=== PATIENT | female | born 1985 | race Caucasian/White ===

== ENCOUNTER 2023-03-08 05:37 | Emergency (ER) | payer OTHER, SELFPAY ==
[2023-03-08 05:45] VITALS: BP 108/68; PULSE 78; RESP 24; TEMP 37; O2SAT 97; BMI 21.9
--- NOTE | 2023-03-08 05:52 | CRLHL7_ITS ---
For Patients: As a result of the Century Cures Act, medical imaging exams and procedure reports are released immediately into your electronic medical record. You may view this report before your referring provider. If you have questions, please contact your health care provider. INDICATION: Left flank pain. TECHNIQUE: CT abdomen and pelvis without contrast. COMPARISON: None. FINDINGS: Lower chest: Unremarkable. Liver: Normal in size and attenuation. No suspicious masses. Gallbladder and bile ducts: No stones or inflammation. No biliary dilatation. Pancreas: Unremarkable. No mass or inflammation. Spleen: Normal in size. No masses. Adrenal glands: Normal in size. No nodules. Kidneys: A small 2 mm stone has passed into the bladder from the left ureter with minimal residual hydronephrosis. A 2nd tiny stone is in the right kidney. GI tract: Unremarkable. Normal in caliber. No sign of mass or inflammation. Normal appendix. Vasculature: Abdominal aorta is normal in caliber. Lymph nodes: No lymphadenopathy. Peritoneum/Abdominal Wall: Unremarkable. No sign of mass or infiltration. No free air or significant free fluid. Pelvis: Unremarkable. No pelvic masses. Bones: Unremarkable for age. IMPRESSION: Small 2 mm stone has passed into the bladder from the left ureter with minimal residual hydronephrosis. Please note that all CT scans at this facility use dose modulation, iterative reconstruction, and/or weight-based dosing when appropriate to reduce radiation dose to as low as reasonably achievable. Dictated by Yong Scott MD @ 03/08/2023 6:50:38 AM (Electronically Signed)
--- NOTE | 2023-03-08 05:54 | ED.GENADULT ---
HPI - General Adult General Chief complaint: Flank Pain Stated complaint: back/stomach pain Time Seen by Provider: 03/08/23 05:44 Source: patient Mode of arrival: ambulatory Limitations: no limitations History of Present Illness HPI narrative: 37-year-old female coming in today after waking up in the middle of the night in acute pain, 1 hour ago. Pain is located on the left flank radiates into the groin area. Nothing makes it better or worse. She feels nauseated but has not vomited. Urinated recently, no blood in her urine. Bowel movements have been normal. No fevers or chills. She has never had a pain like this before. She uses a budesonide formoterol inhaler and she gets regular injections for weight loss. Related Data Home Medications Medication Instructions Recorded Confirmed budesonide-formoterol HFA 160 2 puff inhalation BID 03/08/23 03/08/23 mcg-4.5 mcg/actuation aerosol inhaler clobetasol 0.05 % scalp solution topical 03/08/23 Allergies Allergy/AdvReac Type Severity Reaction Status Date / Time No Known Drug Allergies Allergy Verified 03/08/23 05:45 Review of Systems Status of ROS: Reports: 10 or more systems reviewed and unremarkable except as noted in History and below Exam Narrative: Exam Narrative: Thin, well-developed patient who appears very uncomfortable, is tearful. Alert and oriented. Answers questions appropriately. Thoughts are goal oriented and rational. No tangential or magical thinking noted. Patient speaks in full sentences without needing to catch her breath. HEENT: Normocephalic atraumatic. Pupils are equally round reactive to light. Extraocular muscles are intact. Conjunctivae are moist without any icterus noted. Moist mucous membranes. Cardiovascular: Heart is regular rate and rhythm S1 and S2 are present without any murmurs. Lungs: Clear to auscultation bilaterally no wheezes rhonchi or rales are appreciated. Patient takes deep breaths without any discomfort. Abdomen: Soft and nontender nondistended with normal bowel sounds. No guarding or rebound. No masses or organomegaly appreciated. She does have left-sided flank pain on palpation and CVA tenderness. Extremities: Bilateral lower extremities are without edema. Skin: Well perfused without any obvious rashes. Const: Vital Signs, click to edit/add: Vital Signs - 24 hr 03/08/23 05:45 Temperature 98.6 F Pulse Rate [Pulse Oximeter] 78 Respiratory Rate 24 Blood Pressure [Ri ght Upper Arm] 108/68 Pulse Oximetry 97 Oxygen Delivery Me thod Room Air Course Course Hospital Course: IV was established and patient received fluids, Zofran and Toradol. Labs were drawn in the CT scan was ordered. Patient continued to have pain so she was given IV Dilaudid which provided her with about 35 minutes of relief, this was followed by oral hydrocodone. Lab work was unremarkable, lactate was 2.0. Normal CRP and a normal white cell count. Abdominal CT scan shows a 2 mm stone that passed into the bladder and 1 stone still in the kidney. She did not leave a urine sample. Vital Signs Vital signs: Initial Vital Signs Temperature 98.6 F 03/08/23 05:45 Temperature Source Temporal Artery Scan 03/08/23 05:45 Pulse Rate 78 03/08/23 05:45 Pulse Rhythm Regular 03/08/23 05:45 Pulse Strength 3+ Normal 03/08/23 05:45 Respiratory Rate 24 03/08/23 05:45 Blood Pressure 108/68 03/08/23 05:45 Blood Pressure Mean 81 03/08/23 05:45 Pulse Oximetry 97 03/08/23 05:45 Oxygen Delivery Method Room Air 03/08/23 05:45 Vital Signs Temperature 98.6 F 03/08/23 05:45 Pulse Rate 78 03/08/23 05:45 Respiratory Rate 24 03/08/23 05:45 Blood Pressure 108/68 03/08/23 05:45 Pulse Oximetry 97 03/08/23 05:45 Oxygen Delivery Method Room Air 03/08/23 05:45 Temperature 98.6 F 03/08/23 05:45 Pulse Rate 78 03/08/23 05:45 Respiratory Rate 24 03/08/23 05:45 Blood Pressure 108/68 03/08/23 05:45 Pulse Oximetry 97 03/08/23 05:45 Oxygen Delivery Method Room Air 03/08/23 05:45 Medical Decision Making MDM Narrative Medical decision making narrative: 37-year-old female with a small kidney stone that has already passed into the bladder, residual hydronephrosis likely the cause of her pain. She will be sent home with hydrocodone and Toradol. We discussed that the worst of it should be over now. We discussed reasons for follow-up. She was in agreement and had no other questions. Lab Data Lab results reviewed: Yes I reviewed the patient's lab results Labs: Lab Results 03/08/23 Range/Units 05:50 WBC 6.78 (4.50-11.00) K/uL RBC 4.44 (4.00-5.20) m/uL Hgb 12.8 (12.0-16.0) gm/dL Hct 38.9 (33.0-51.0) % MCV 88 (80-100) fL MCH 29 (26-34) pg MCHC 33 (32-36) gm/dL RDW Coeff of Sha 11.8 (11.5-15.5) % Plt Count 293 (140-440) K/uL Neut % (Auto) 33.1 L (42.0-72.0) % Lymph % (Auto) 53.5 H (20-44) % [place] % (Auto) 10.2 (0.0-11.0) % Eos % (Auto) 2.9 (0.0-7.0) % Baso % (Auto) 0.3 (0.0-3.0) % Neut # (Auto) 2.20 (1.7-7.0) K/uL Lymph # (Auto) 3.60 H (0.90-2.90) K/uL [place] # (Auto) 0.70 (0.00-0.90) K/UL Eos # (Auto) 0.20 (0.00-0.50) K/uL Baso # (Auto) 0.02 (0.00-0.30) K/uL Abs Immat Gran (auto) 0.00 (0.00-0.30) K/uL Imm/Tot Granulo (auto) 0.0 % Sodium 138 (135-149) mmol/L Potassium 3.5 L (3.6-5.1) mmol/L Chloride 105 (96-114) mmol/L Carbon Dioxide 25 (20-32) mmol/L BUN 18 (5-24) mg/dL Creatinine 0.7 (0.5-1.5) mg/dL Estimated Creat Clear 107.01 Estimated GFR 114 ml/min Glucose 107 (60-115) mg/dL Lactate 2.0 H (0.5-1.9) mmol/L Calcium 9.0 (8.4-10.6) mg/dL Total Bilirubin 0.5 (0.1-1.5) mg/dL Direct Bilirubin 0.0 (0.0-0.5) mg/dL AST 20 (12-35) U/L ALT 16 (4-35) U/L Alkaline Phosphatase 35 L (40-150) U/L C-Reactive Protein < 0.5 L (0.5-1.0) mg/dL Total Protein 6.6 (6.0-8.3) g/dL Albumin 4.2 (3.3-5.0) g/dL HCG, Qual Negative (Negative) Imaging Data CT scan - abdomen: Attestation: I have reviewed the pertinent imaging results. Radiologist's impression: Left flank pain. TECHNIQUE: CT abdomen and pelvis without contrast. COMPARISON: None. FINDINGS: Lower chest: Unremarkable. Liver: Normal in size and attenuation. No suspicious masses. Gallbladder and bile ducts: No stones or inflammation. No biliary dilatation. Pancreas: Unremarkable. No mass or inflammation. Spleen: Normal in size. No masses. Adrenal glands: Normal in size. No nodules. Kidneys: A small 2 mm stone has passed into the bladder from the left ureter with minimal residual hydronephrosis. A 2nd tiny stone is in the right kidney. GI tract: Unremarkable. Normal in caliber. No sign of mass or inflammation. Normal appendix. Vasculature: Abdominal aorta is normal in caliber. Lymph nodes: No lymphadenopathy. Peritoneum/Abdominal Wall: Unremarkable. No sign of mass or infiltration. No free air or significant free fluid. Pelvis: Unremarkable. No pelvic masses. Bones: Unremarkable for age. IMPRESSION: Small 2 mm stone has passed into the bladder from the left ureter with minimal residual hydronephrosis. Discharge Plan Discharge Clinical Impression: Kidney stone Patient Disposition: Home, Self-Care Condition: Stable Additional Instructions: It appears that you have a very small kidney stone that has already passed into the bladder. Therefore the worst of the severe pain should be over. Make sure you stay well hydrated and take pain medication as needed. Start with the Toradol which has an anti-inflammatory unit which will help with the inflammation that is the cause of the pain, take the hydrocodone as needed. Return to the ER if you develops fever or worsening pain. Prescriptions sent to [facility]. Prescriptions: No Action clobetasol 0.05 % solution topical budesonide-formoterol 160-4.5 mcg/actuation HFA aerosol inhaler 2 puff INHALATION BID Stand Alone Forms: MyHealth Info Instructions
[2023-03-08 06:02] LABS: Basophils Absolute Auto 0.02 K/uL (0.00-0.30); Basophils Percent Auto 0.3 % (0.0-3.0); Eosinophils Percent Auto 2.9 % (0.0-7.0); Hematocrit 38.9 % (33.0-51.0); Hemoglobin* 12.8 gm/dL (12.0-16.0); Lymphocytes Percent Auto 53.5 % (20-44); Mean Corpuscular HGB Conc 33 gm/dL (32-36); Mean Corpuscular Hemoglobin 29 pg (26-34); Mean Corpuscular Volume 88 fL (80-100); Monocytes Percent Auto 10.2 % (0.0-11.0); Neutrophils Percent Auto 33.1 % (42.0-72.0); Platelet Count* 293 K/uL (140-440); RDW Coefficient of Variation % 11.8 % (11.5-15.5); Red Blood Count 4.44 m/uL (4.00-5.20); White Blood Count* 6.78 K/uL (4.50-11.00)
[2023-03-08 06:03] LABS: Slide Review Reflex No
[2023-03-08] MEDS: ONDANSETRON 2 MG/ML inj 4 MG IVP (06:08)
[2023-03-08] MEDS: 0.9 % SODIUM CHLORIDE 1000 ml 1,000 ML IV (06:08)
[2023-03-08] MEDS: KETOROLAC 30 MG/ML inj IVP (06:08)
[2023-03-08] MEDS: HYDROmorphone 0.5 mg/0.5 ml inj IVP (06:14)
[2023-03-08 06:20] LABS: HCG Qualitative Serum* Negative (Negative)
[2023-03-08 06:23] LABS: Chloride* 105 mmol/L (96-114); Potassium* 3.5 mmol/L (3.6-5.1); Sodium* 138 mmol/L (135-149)
[2023-03-08 06:24] LABS: Albumin* 4.2 g/dL (3.3-5.0)
[2023-03-08 06:26] LABS: Creatinine* 0.7 mg/dL (0.5-1.5); Est. Creatinine Clearance* 107.01; Estimated Glomerular Filt Rate 114 ml/min
[2023-03-08 06:27] LABS: Aspartate Amino Transferase* 20 U/L (12-35); Bilirubin Total* 0.5 mg/dL (0.1-1.5); Blood Urea Nitrogen* 18 mg/dL (5-24); Carbon Dioxide* 25 mmol/L (20-32); Glucose* 107 mg/dL (60-115); Total Protein* 6.6 g/dL (6.0-8.3)
[2023-03-08 06:28] LABS: Alanine Aminotransferase* 16 U/L (4-35); Alkaline Phosphatase* 35 U/L (40-150)
[2023-03-08 06:30] LABS: C Reactive Protein* < 0.5 mg/dL (0.5-1.0)
[2023-03-08] MEDS: HYDROCODONE-ACETAMIN 5-325 MG 1 TAB 2 TAB PO (07:02)
[2023-03-08 07:04] VITALS: PULSE 80; RESP 16; O2SAT 97
== END 2023-03-08 07:20 | disposition home or self-care (01) ==
PROVIDERS: Emergency Provider Family Medicine; PCP Physician Assistant
DX: N20.0 Calculus of kidney (principal)
CPT/HCPCS: 36415; 74176; 80048; 80076; 81001; 81025; 83605; 84703; 85025; 86140; 87086; 96374; 96375; 99284; A9270; J1170; J1885; J2405; J7030